=== PATIENT | male | born 1975 | race Two or more races ===

== ENCOUNTER 2024-12-04 10:05 | Emergency (ER) | payer MEDICAID, SELFPAY ==
[2024-12-04 10:10] VITALS: BMI 35.5
[2024-12-04 10:20] VITALS: BP 154/90; PULSE 61; RESP 16; TEMP 36.9; O2SAT 99
--- NOTE | 2024-12-04 10:26 | EKG_ITS ---
[facility] Test Date: 2024-12-04 Pat Name: JAMIL GONZALES Department: Room: - Gender: Male Ict Customer Support Officer: : 1975 Requested By: Nicole Harding ([facility]) Jerry Order Number: [id number] Reading MD: Nicole Harding ([facility]) Jerry Measurements Intervals [place] Rate: 66 P: 54 SC: 173 QRS: 11 QRSD: 82 T: 66 QT: 362 QTc: 380 Interpretive Statements SINUS RHYTHM LOW QRS VOLTAGE IN PRECORDIAL LEADS [QRS DEFLECTION < 1.0 mV IN CHEST LEADS] NONSPECIFIC T-WAVE ABNORMALITY No previous ECG available for comparison /[id number]/[email or web address]/[id number].pdf
--- NOTE | 2024-12-04 10:26 | XR_ITS ---
Examination: PA chest single view TECHNIQUE: Upright PA chest single view Exam date and time: December 04, 2024 1055 hours INDICATIONS: Syncopal episode with chest pain onset today. FINDINGS: Mild prominence left ventricle Mild vascular congestion. No lobar pneumonia or pulmonary edema IMPRESSION: Mild vascular congestion No aspiration pneumonia
--- NOTE | 2024-12-04 10:26 | XR_ITS ---
Examination: CT brain head without contrast. 2-D sagittal coronal reconstructions Date and time of exam:December 04, 2024 1047 hours INDICATIONS: Onset dizziness episodes today COMPARISON: August 21, 2022 CTDI: vol (mGy):54.7 DLP: (mGycm):1109 Technique: Multiple CT axial sections of the brain have been obtained, 5 mm slice thickness. Contrast has not been administered. 2-D sagittal, coronal reconstructions have been obtained Low dose protocols were performed. One or more of the following dose reduction techniques were used; automated exposure control, adjustment of the mA and/or KV according to patient size, use of iterative reconstruction technique. Findings: No significant ventricular enlargement. Intra-axial or extra-axial hemorrhage density is not seen. No mass effect or midline shift Basal cisterns are not remarkable. Fourth ventricle is midline. Cranial vault intact. Impression: Negative for acute hemorrhage, mass effect or midline shift Advise clinical correlation and follow-up accordingly
--- NOTE | 2024-12-04 10:28 | PD.EDRME ---
Rapid Medical Screening Exam RME Arrival date/time: 12/04/24 10:05 49-year-old female presents to the emergency department with complaints of acute dizziness that began at 1 in the morning. I have greeted and performed a focused initial assessment of this patient. Initial appropriate labs ordered at this time. A comprehensive ED assessment and evaluation of the patient and analysis of all test and completion of medical decision making process will be conducted by additional ED provider. Chief Complaint: General Adult/Misc Complain Time Seen by Provider: 12/04/24 10:26 Vital signs: Vital Signs Temperature 98.4 F 12/04/24 10:20 Pulse Rate 61 12/04/24 10:20 Respiratory Rate 16 12/04/24 10:20 Blood Pressure 154/90 H 12/04/24 10:20 Pulse Oximetry (%) 99 12/04/24 10:20 Oxygen Delivery Method Room Air 12/04/24 10:20
[2024-12-04 11:31] LABS: Basophils # (Auto) 0.1 Thou/mm3 (0.0-0.2); Basophils % (Auto) 1 % (0-2.5); Eosinophils # (Auto) 0.2 Thou/mm3 (0.0-0.5); Eosinophils % (Auto) 2 % (0-10); Hematocrit 42.6 % (41.0-53.0); Hemoglobin 14.7 g/dL (13.5-16.0); Immature Granulocytes % (Auto) 0 % (0-0); Immature Granulocytes Auto 0.01 Thou/mm3 (0.00-0.00); Lymphocytes # (Auto) 1.6 Thou/mm3 (1.0-4.8); Lymphocytes % (Auto) 20 % (10-50); Mean Corpuscular HGB Conc 34.5 g/dl (31.0-37.0); Mean Corpuscular Hemoglobin 30.8 pg (25.0-35.0); Mean Corpuscular Volume 89 fL (80-100); Monocytes # (Auto) 0.5 Thou/mm3 (0.0-0.8); Monocytes % (Auto) 7 % (0-12); Neutrophils # (Auto) 5.6 Thou/mm3 (1.8-7.7); Neutrophils % (Auto) 70 % (37-80); Nucleated Red Blood Cell % 0 /100 WBC (0); Platelet Count 220 Thou/mm3 (140-440); RDW Standard Deviation 43.1 fL (35.1-43.9); Red Blood Count 4.77 Miln/mm3 (4.50-5.90)
[2024-12-04 11:48] LABS: Partial Thromboplastin Time 26.6 Seconds (22.0-36.0); Prothrombin Time 11.4 Seconds (9.0-12.2)
[2024-12-04 11:51] LABS: Alanine Aminotransferase 73 U/L (10-49); Albumin, Serum 4.2 gm/dL (3.5-5.0); Albumin/Globulin Ratio 1.4 (1.2-2.2); Alkaline Phosphatase 84 U/L (46-116); Anion Gap 7 (7-16); Aspartate Amino Transferase 44 U/L (0-34); BUN/Creatinine Ratio 10 Ratio (12-20); Bilirubin,Total 0.5 mg/dL (0.3-1.2); Blood Urea Nitrogen 8 mg/dL (9-23); Calcium 9.3 mg/dL (8.3-10.6); Calcium (Corrected) 9.3 mg/dL (8.5-10.1); Carbon Dioxide 28.3 mMol/L (20.0-31.0); Chloride 103 mMol/L (98-107); Creatinine (Component) 0.8 mg/dL (0.6-1.3); Estimated Creatinine Clearance 129.2 mL/min (>60); Globulin 3.1 gm/dL (2.3-3.5); Glucose 224 mg/dL (74-106); Osmolality,Calculated 280 (275-295); Potassium 4.4 mMol/L (3.4-5.1); Sodium 138 mMol/L (136-145); Total Protein 7.3 gm/dL (5.7-8.2); Troponin I < 0.002 ng/mL (0.0-0.045); eGFR > 60 See Note
[2024-12-04 12:16] LABS: Collection Type, Urine Clean Catch
[2024-12-04 12:27] LABS: Amphetamine/Methamp Scrn,U Negative (Negative); Barbiturate Screen,Urine Negative (Negative); Benzodiazepines Screen,Urine Negative (Negative); Benzoylecgonine Screen, Ur Negative (Negative); Fentanyl Screen,Urine Negative (Negative); Opiate Screen,Urine Negative (Negative); THC Screen,Urine Negative (Negative)
[2024-12-04 12:36] LABS: Bilirubin,Urine Negative (Negative); Blood,Urine Negative (Negative); Clarity,Urine Clear (Clear/Hazy); Color,Urine Yellow (Lt Yel-Yel); Glucose, Urine Trace (Negative); Ketones,Urine Negative (Negative); Leukocyte Esterase,Urine Negative (Negative); Nitrite,Urine Negative (Negative); Protein,Urine Trace (Neg - Trace); RBC,Urine 1 /hpf (0-3); Specific Gravity,Urine 1.023 (1.001-1.035); Squamous Epithelial Cell,Urine 1 /hpf (0-5); Urobilinogen,Urine Negative mg/dL (0.0-1.0); WBC,Urine < 1 /hpf (0-5)
[2024-12-04 14:22] VITALS: BP 118/75; PULSE 69; RESP 17; TEMP 37.4; O2SAT 98
--- NOTE | 2024-12-04 14:32 | EDNOTE_ITS ---
<Statement entered by Nubia Rodriguez MD - 12/08/24 07:25> As co-signing physician, I was present and available for consult prn. I concur with the plan and care as documented by the midlevel provider. ED General RME/HPI General Chief complaint: General Adult/Misc Complain Stated complaint: WEAKNESS Time Seen by Provider: 12/04/24 10:26 Arrival date/time: 12/04/24 10:05 RME / HPI RME / HPI narrative: 49-year-old male patient with significant history of hypertension diabetes mellitus, came in for evaluation regarding sudden onset of dizziness and vertigo. Started early this morning about 1 AM, severity of symptoms moderate. Patient also complained of mild headache. Denies any neck pain chest pain or other complaints. Patient also denies any fever. Denies any trauma or fall recently. No vomiting. Patient is ambulatory. Related Data Home Medications ?Medication ?Instructions ?Recorded ?Confirmed metformin 500 mg tablet,extended 500 mg PO QDAY 08/21/22 release 24 hr rosuvastatin 10 mg tablet 10 mg PO QDAY 08/21/2208/21 Previous Rx's ?Medication ?Instructions ?Recorded acetaminophen 300 mg-codeine 15 mg 1 tab PO BID PRN pa in #6 tabs 08/21/22 tablet meclizine 50 mg tablet 50 mg PO BID PRN dizziness # 20 tabs 12/04/24 Allergies Allergy/AdvReac Type Severity Reaction Status Date / Time No Known Allergies Allergy Verified 12/04/24 10:15 Review of Systems Review of Systems Narrative Review of Systems: Review of system reviewed and within normal limits except mentioned in HPI ED Exam Narrative Physical exam: VITAL SIGNS: Reviewed. GENERAL APPEARANCE: Alert and interactive, follows commands, no acute distress, HEAD AND FACE: Non-traumatic. ENT: PERRL, pink conjunctivitis, eyelid no trauma, Mucous membrane moist. NECK: Supple, nontender, no nuchal rigidity. CHEST: No tenderness, no crepitus, no paradoxical movement, no retractions. LUNGS: Clear, well ventilated, symmetric, no rales, no wheezing, no ronchi, no stridor, good breath sounds bilaterally. HEART: Regular rate, regular rhythm, no murmur, no gallops. ABDOMEN: Soft, positive bowel sounds, nondistended, no guarding, nontender, no rebound, no masses, RECTAL: Deferred. GENITAL: Deferred. NEUROLOGICAL: Gross motor function intact sensory function intact, Appropriate for age. MUSCULOSKELETAL: low back nontender, full range of motion. EXTREMITIES: Nontender, full range of motion. SKIN: Color pink, dry, no rash, no lacerations, no abrasions, no contusions. LYMPHATICS: Deferred. Course Quality Measures none Orders Category Date Time Status Bedside Blood Glucose NOW Care 12/04/24 10:26 Active Bedside COVID-19 Antigen Test NOW Care 12/04/24 10:26 Active Bedside Influenza A&B Antigen Test NOW Care 12/04/24 10:27 Completed Rn Telephone Triage STAT Care 12/04/24 10:26 Active EKG (ED ONLY) *Do not use* NOW Care 12/04/24 10:[address] head/brain wo con Stat Exams 12/04/24 10:26 Completed EKG (ED Only) Stat Exams 12/04/24 10:26 Draft XR chest 1V portable Stat Exams 12/04/24 10:26 Completed CBC Stat Lab 12/04/24 11:18 Completed Comprehensive Metabolic Panel Stat Lab 12/04/24 11:18 Completed Drug Screen,Urine Stat Lab 12/04/24 12:00 Completed Partial Thromboplastin Time Stat Lab 12/04/24 11:18 Completed Prothrombin Time with INR Stat Lab 12/04/24 11:18 Completed Troponin I Stat Lab 12/04/24 11:18 Completed Urinalysis Stat Lab 12/04/24 12:00 Completed Acetaminophen Tab [Tylenol ES Tab] Med 12/04/24 14:31 Discontinued 1,000 mg PO X1 ONE Meclizine HCl [Antivert] Med 12/04/24 14:31 Discontinued 50 mg PO X1 ONE Sodium Chloride 0.9% 1000 ml [Ns] 1,000 ml Med 12/04/24 14:32 Discontinued IV 999 mls/hr Vital Signs Vital signs: Vital Signs Temperature 98.4 F 12/04/24 10:20 Pulse Rate 61 12/04/24 10:20 Respiratory Rate 16 12/04/24 10:20 Blood Pressure 154/90 H 12/04/24 10:20 Pulse Oximetry (%) 99 12/04/24 10:20 Oxygen Delivery Method Room Air 12/04/24 10:20 [facility] Patient data External records reviewed:: None Clinical information provided by:: patient and family Social determinants that could affect healthcare access:: none Patient has the following chronic illnesses:: Hypertension diabetes mellitus How is presenting disease/condition affected by chronic disease/condition?: e xacerbated by Evaluation data The following diagnostics were reviewed and interpreted by me:: lab results, radiology exam(s) and EKG tracing(s) Lab and/or radiology exams considered but not ordered:: None Interpretation Summary: See results in MDM none Medications Medications considered but not ordered:: None IV Medication administrations:: Medication Administration History Discontinued Medications Acetaminophen (Acetaminophen 500 Mg Tablet) 1,000 mg PO X1 ONE Stop: 12/04/24 14:32 Last Admin: 12/04/24 14:59 Dose: 1,000 mg Documented By: KARLA Sodium Chloride (Ns) 1,000 mls @ 999 mls/hr IV .Q1H1M ONE Stop: 12/04/24 15:32 Last Infusion: 12/04/24 15:47 Dose: Infused Documented By: Admin: 12/04/24 15:00 Dose: 999 mls/hr Documented By: KARLA Meclizine HCl (Meclizine Hcl 25 Mg Tablet) 50 mg PO X1 ONE Stop: 12/04/24 14:32 Last Admin: 12/04/24 14:59 Dose: 50 mg Documented By: KARLA IV fluids, meclizine, and Tylenol Consultations Consultation(s) initiated? (list below): No Diagnosis Differential Diagnosis ED Complaint MDM: Dizziness, vertigo, CVA Most likely diagnosis given after review of the tests above:: Dizziness Admission Indicated Admission indicated?: not indicated Explain why admission is indicated or not indicated:: Stable. Patient told me that his symptoms is almost gone after fluids and meclizine. Admission Request Was there a request for admission?: No Disposition Plan Disposition Plan: Discharge Discharge Attestation Discharge Attestation: The patient and all family members were given an opportunity to ask questions and understood the discharge instructions. Discharge instructions specifically effects, indications for sooner follow up or return to the emergency department, and the expected course of current diagnosis. Patient condition: Stable Medical Decision Making MDM Narrative MDM Narrative: 49-year-old male patient with significant history of hypertension diabetes mellitus, came in for evaluation regarding sudden onset of dizziness and vertigo. Started early this morning about 1 AM, severity of symptoms moderate. Patient also complained of mild headache. Denies any neck pain chest pain or other complaints. Patient also denies any fever. Denies any trauma or fall recently. No vomiting. Patient is ambulatory. Patient's workup all came back unremarkable including CT scan of the head which came back normal also. Urinalysis no UTI. Chest x-ray came back normal EKG showed normal sinus rhythm, ventricular rate of 66 bpm, no ST segment elevation depression noted. Patient received IV fluids for hydration, meclizine and Tylenol. Differential Diagnosis Differential Diagnosis: Dizziness, vertigo, CVA Lab Data 12/04/24 11:18 12/04/24 11:18 Labs: Lab Results 12/04/24 12/04/24 Range/Units 11:18 12:00 WBC 8.0 (3.8-10.6) Thou/mm3 RBC 4.77 (4.50-5.90) Miln/mm3 Hgb 14.7 (13.5-16.0) g/dL Hct 42.6 (41.0-53.0) % MCV 89 (80-100) fL MCH 30.8 (25.0-35.0) pg MCHC 34.5 (31.0-37.0) g/dl RDW Std Deviation 43.1 (35.1-43.9) fL Plt Count 220 (140-440) Thou/mm3 Neut % (Auto) 70 (37-80) % Lymph % (Auto) 20 (10-50) % [place] % (Auto) 7 (0-12) % Eos % (Auto) 2 (0-10) % Baso % (Auto) 1 (0-2.5) % Neut # (Auto) 5.6 (1.8-7.7) Thou/mm3 Lymph # (Auto) 1.6 (1.0-4.8) Thou/mm3 [place] # (Auto) 0.5 (0.0-0.8) Thou/mm3 Eos # (Auto) 0.2 (0.0-0.5) Thou/mm3 Baso # (Auto) 0.1 (0.0-0.2) Thou/mm3 Immature Gran # (Auto) 0.01 H (0.00-0.00) Thou/mm3 Absolute Nucleated RBC 0.00 (0.00-0.00) Thou/mm3 Immature Gran % 0 (0-0) % Nucleated RBC % 0 (0) /100 WBC PT 11.4 (9.0-12.2) Seconds INR 1.0 (0.9-1.3) APTT 26.6 (22.0-36.0) Seconds Sodium 138 (136-145) mMol/L Potassium 4.4 (3.4-5.1) mMol/L Chloride 103 (98-107) mMol/L Carbon Dioxide 28.3 (20.0-31.0) mMol/L Anion Gap 7 (7-16) BUN 8 L (9-23) mg/dL Creatinine 0.8 (0.6-1.3) mg/dL Estim Creat Clear Calc 129.2 (>60) mL/min eGFR > 60 (60 - ) See Note BUN/Creatinine Ratio 10 L (12-20) Ratio Glucose 224 H (74-106) mg/dL Calculated Osmolality 280 (275-295) Calcium 9.3 (8.3-10.6) mg/dL Corrected Calcium 9.3 (8.5-10.1) mg/dL Total Bilirubin 0.5 (0.3-1.2) mg/dL AST 44 H (0-34) U/L ALT 73 H (10-49) U/L Alkaline Phosphatase 84 (46-116) U/L Troponin I < 0.002 (0.0-0.045) ng/mL Total Protein 7.3 (5.7-8.2) gm/dL Albumin 4.2 (3.5-5.0) gm/dL Globulin 3.1 (2.3-3.5) gm/dL Albumin/Globulin Ratio 1.4 (1.2-2.2) Ur Collection Type Clean Catch Urine Color Yellow (Lt Yel-Yel) Urine Clarity Clear (Clear/Hazy) Urine pH 7.0 (5.0-7.0) Ur Specific [place] 1.023 (1.001-1.035) Urine Protein Trace (Neg - Trace) Urine Glucose (UA) Trace (Negative) Urine Ketones Negative (Negative) Urine Blood Negative (Negative) Urine Nitrite Negative (Negative) Urine Bilirubin Negative (Negative) Urine Urobilinogen (Auto) Negative (0.0-1.0) mg/dL Ur Leukocyte Esterase Negative (Negative) Urine RBC 1 (0-3) /hpf Urine WBC < 1 (0-5) /hpf Ur Squamous Epith Cells 1 (0-5) /hpf Urine Bacteria None (None) Urine Opiates Screen Negative (Negative) Urine Fentanyl Screen Negative (Negative) Ur Barbiturates Screen Negative (Negative) U Amphetamin/Meth Scrn Negative (Negative) U Benzodiazepines Scrn Negative (Negative) U Cocaine Metab Screen Negative (Negative) U Marijuana (THC) Screen Negative (Negative) Discharge Plan Plan Patient Disposition: HOME (Self Care) Disposition Comment: Stable Prescriptions/Referrals Prescriptions/Med Rec: New meclizine 50 mg tablet 50 mg PO BID PRN (Reason: dizziness) Qty: 20 0RF No Action metformin 500 mg tablet extended release 24 hr 500 mg PO QDAY rosuvastatin 10 mg tablet 10 mg PO QDAY acetaminophen-codeine 300-15 mg tablet 1 tab PO BID PRN (Reason: pain) Qty: 6 0RF Referrals: Anand Clemens [Primary Care Provider] - In 1 week Problem List Clinical Impression: Dizziness Patient/Caregiver Discharge Instructions Discharge Activity: activity as tolerated Education Materials: Dizziness Fainting Poss Causes Additional Instructions: Thank you for the opportunity for serving you today. You are stable for discharged . You are advised to: Follow-up with your PCP in 1 to 2 days Return to ED for worsening of symptoms Increase oral fluids Take medication as prescribed Print Language: Singaporean Stand Alone Forms: Lalita Award Info., Patient Portal Info Letter PA/FILM CLEANER Supervising Physician HATTIE/ANETTE Supervising Physician: Md Amena
[2024-12-04] MEDS: MECLIZINE HCL 25 MG TABLET 50 MG PO (14:59)
[2024-12-04] MEDS: ACETAMINOPHEN 500 MG TABLET 1000 MG PO (14:59)
[2024-12-04] MEDS: SODIUM CHLORIDE 0.9% 1000 ML 1,000 ML 999 ML IV (15:00)
== END 2024-12-04 16:51 | disposition home or self-care (01) ==
PROVIDERS: Nurse Practitioner Primary Care; Emergency Provider Emergency Medicine; PCP Internal Medicine
DX: R42 Dizziness and giddiness (principal); R51.9 Headache, unspecified; E11.9 Type 2 diabetes mellitus without complications; I10 Essential (primary) hypertension
CPT/HCPCS: 36415; 70450; 71045; 80053; 80307; 81001; 84484; 85025; 85610; 85730; 87400; 87811; 93005; 99284; J7030; A9270